=== PATIENT | male | born 1985 | race Caucasian/White ===

== ENCOUNTER 2022-01-01 22:15 | Emergency (ER) | payer OTHER ==
[~2022-01-01] VITALS: Ht 175.3 cm; Wt 90.7 kg
--- NOTE | 2022-01-01 22:20 | NUR ---
PT AMBULATED TO ER C/O LT PINKY PAIN AND SWELLING X 3-4 DAYS, UNKNOWN ETIOLOGY. A/O X4, NO SOB OR LABORED BREATHING, AFEBRILE.
--- NOTE | 2022-01-01 22:30 | NUR ---
DR. PACHECO AT BEDSIDE, MSE IN PROGRESS.
[2022-01-01] MEDS ORDERED: PIPERACILLIN SODIUM/TAZOBACTAM 3.375 G in IV DEXTROSE 5% 50 ML IV ONE (23:00)
[2022-01-01] MEDS ORDERED: ONDANSETRON 4 MG/2 ML VIAL IV ONE (23:00)
[2022-01-01] MEDS ORDERED: HYDROMORPHONE 1 MG/1 ML DISP.SYRIN IV ONE (23:00)
[2022-01-01] MEDS ORDERED: SULFAMETH/TRIMETH 800/160 MG TABLET PO ONE (23:00)
[2022-01-01] MEDS ORDERED: ONDANSETRON 4 MG/2 ML VIAL ONE (23:38)
[2022-01-01] MEDS ORDERED: HYDROMORPHONE 1 MG/1 ML DISP.SYRIN ONE (23:38)
[2022-01-01] MEDS ORDERED: SULFAMETH/TRIMETH 800/160 MG TABLET ONE (23:38)
[2022-01-01] MEDS ORDERED: PIPERACILLIN/TAZOBACTAM/D5W 50 ML IV ONE (23:38)
[2022-01-01] MEDS ORDERED: ONDA4TAB5 PO (23:55)
[2022-01-01] MEDS ORDERED: SULF1TAB48 PO (23:55)
[2022-01-01] MEDS ORDERED: AMOX-430 PO (23:55)
--- NOTE | 2022-01-02 00:18 | NUR ---
Patient discharged to home in stable condition. Written and verbal after care instructions given. Patient verbalizes understanding of instructions. Stressed follow up or return to ER for worsening s/s. Steady gait, no SOB or labored breathing. Denies any pain/discomfort upon discharge. Picked up by friend.
[2022-01-02 00:19] VITALS: BP 122/80
== END 2022-01-02 00:19 | disposition home or self-care (01) ==
LOC: ER 22:15
DX: L03.019 Cellulitis of unspecified finger (principal)
CPT/HCPCS: 73140; 96365; 96375; 99284; J1170; J2543; A4663; J2405; J7060

== ENCOUNTER 2022-02-22 02:28 | Emergency (ER) | payer OTHER ==
[~2022-02-22] VITALS: Ht 172.7 cm; Wt 99.8 kg
[~2022-02-22 02:28] MED LIST: AMOX-430 PO; ONDA4TAB5 PO; SULF1TAB48 PO
--- NOTE | 2022-02-22 03:09 | NUR ---
Dr. Hurt at bedside for MSE.
[2022-02-22 03:49] LABS: *BILIRUBIN,URIN NEGATIVE (NEGATIVE); *BLOOD, URINE 2+ (NEGATIVE); *CLARITY,URINE CLOUDY (CLEAR); *COLOR,URINE YELLOW (YELLOW); *KETONES,URINE TRACE (NEGATIVE); *UROBILINOGEN,URINE 0.2 E.U./dl (NORMAL); LEUKOCYTE ESTERASE ,URINE 1+ (NEGATIVE); NITRITE, URINE NEGATIVE (NEGATIVE); PH,URINE 5.5 (5.0-8.0); UGLUCOSE TRACE (NEGATIVE)
--- NOTE | 2022-02-22 03:53 | NUR ---
Ultrasound at bedside.
[2022-02-22 04:05] LABS: BACTERIA,URINE MODERATE /HPF (NONE SEEN); RBC,URINE TNTC /HPF (0-3); SQUAMOUS EPITHELIAL CELL,UR FEW /HPF (NONE SEEN); WBC,URINE TNTC /HPF (0-3)
[2022-02-22 04:57] LABS: *MONOTEST NEGATIVE (NEGATIVE)
[2022-02-22] MEDS ORDERED: DOXY100C5 PO (05:23)
[2022-02-22] MEDS ORDERED: CEFTRIAXONE 500 MG VIAL ONE (05:24)
[2022-02-22] MEDS ORDERED: DOXYCYCLINE HYCLATE 100 MG TABLET ONE (05:24)
[2022-02-22] MEDS ORDERED: LIDOCAINE HCL 1% 20 ML VIAL ONE (05:24)
[2022-02-22] MEDS ORDERED: DOXYCYCLINE HYCLATE 100 MG TABLET PO ONE (05:30)
[2022-02-22] MEDS ORDERED: CEFTRIAXONE 500 MG VIAL IM ONE (05:30)
--- NOTE | 2022-02-22 05:38 | NUR ---
Patient discharged to home in stable condition. Written and verbal after care instructions given. Patient verbalizes understanding of instructions. Stressed follow up or return to ER for worsening s/s.
[2022-02-22 05:54] VITALS: BP 120/77
[2022-02-24 01:06] LABS: *GC NAA Negative (Negative)
[2022-02-24 03:06] LABS: *TRIC.VAG. NAA Negative (Negative)
== END 2022-02-22 05:40 | disposition home or self-care (01) ==
LOC: ER 02:31
DX: N45.1 Epididymitis (principal); F17.210 Nicotine dependence, cigarettes, uncomplicated; Z79.2 Long term (current) use of antibiotics; Z79.899 Other long term (current) drug therapy
CPT/HCPCS: 36415; 76870; 81001; 86308; 87086; 87491; 96372; 99284; J0696; J3490; A4663

== ENCOUNTER 2022-02-24 13:51 | Emergency (ER) | payer OTHER ==
[~2022-02-24] VITALS: Ht 172.7 cm; Wt 90.7 kg
[~2022-02-24 13:51] MED LIST changes: +DOXY100C5 PO
[2022-02-24] MEDS ORDERED: HYDR-3980 PO (14:03)
--- NOTE | 2022-02-24 14:16 | NUR ---
PT WAS EVALUATED BY DR CHESTER. PT WAS D/C'd TO HOME. D/C INSTRUCTIONS GIVEN TO THE PT BY DR CHESTER.
[2022-02-24 14:18] VITALS: BP 141/78
== END 2022-02-24 14:18 | disposition home or self-care (01) ==
LOC: ER 13:51
DX: A56.19 Other chlamydial genitourinary infection (principal)
CPT/HCPCS: A4663

== ENCOUNTER 2022-03-14 18:31 | Emergency (ER) | payer OTHER ==
[~2022-03-14] VITALS: Ht 172.7 cm; Wt 90.7 kg
[~2022-03-14 18:31] MED LIST changes: +HYDR-3980 PO
--- NOTE | 2022-03-14 19:08 | NUR ---
Dr skinner at bedside, MSE in progress.
[2022-03-14 19:34] LABS: *BILIRUBIN,URIN NEGATIVE (NEGATIVE); *CLARITY,URINE CLEAR (CLEAR); *COLOR,URINE YELLOW (YELLOW); *KETONES,URINE TRACE (NEGATIVE); *UROBILINOGEN,URINE 0.2 E.U./dl (NORMAL); LEUKOCYTE ESTERASE ,URINE NEGATIVE (NEGATIVE); NITRITE, URINE NEGATIVE (NEGATIVE); PH,URINE 5.5 (5.0-8.0); UGLUCOSE NEGATIVE (NEGATIVE)
[2022-03-14 19:35] LABS: *BLOOD, URINE TRACE (NEGATIVE)
[2022-03-14 19:53] LABS: BACTERIA,URINE FEW /HPF (NONE SEEN); SQUAMOUS EPITHELIAL CELL,UR FEW /HPF (NONE SEEN); WBC,URINE 0-3 /HPF (0-3)
[2022-03-14 20:01] LABS: CALCIUM OXALATE CRYSTALS,UR RARE /HPF (NONE SEEN)
[2022-03-14] MEDS ORDERED: DOXY-226 PO (20:28)
--- NOTE | 2022-03-14 20:54 | NUR ---
Patient discharged to home in stable condition. Written and verbal after care instructions given. Patient verbalizes understanding of instructions. Stressed follow up or return to ER for worsening s/s. pt ambulated with steady gait. denies pain. no SOB. no chest pain. AOx4
[2022-03-14 20:55] VITALS: BP 118/73
[2022-03-17 02:06] LABS: *GC NAA Negative (Negative)
[2022-03-17 06:06] LABS: *TRIC.VAG. NAA Negative (Negative)
== END 2022-03-14 20:55 | disposition home or self-care (01) ==
LOC: ER 18:35
DX: A56.19 Other chlamydial genitourinary infection (principal)
CPT/HCPCS: 87491; 87591

== ENCOUNTER 2022-08-20 15:30 | Emergency (ER) | payer OTHER ==
[~2022-08-20] VITALS: Ht 172.7 cm; Wt 90.7 kg
[~2022-08-20 15:30] MED LIST changes: +DOXY-226 PO
--- NOTE | 2022-08-20 16:00 | NUR ---
Pt was brought to triage via w/c, triaged and placed back in waiting room. No ER beds available.
[2022-08-20] MEDS ORDERED: HYDROCODONE/APAP 5-325MG TABLET PO ONE (16:45)
[2022-08-20] MEDS ORDERED: HYDROCODONE/APAP 5-325MG TABLET ONE (16:51)
[2022-08-20 16:59] LABS: *BILIRUBIN,URIN NEGATIVE (NEGATIVE); *BLOOD, URINE NEGATIVE (NEGATIVE); *CLARITY,URINE CLOUDY (CLEAR); *COLOR,URINE YELLOW (YELLOW); *KETONES,URINE 1+ (NEGATIVE); *UROBILINOGEN,URINE 0.2 E.U./dl (NORMAL); LEUKOCYTE ESTERASE ,URINE NEGATIVE (NEGATIVE); NITRITE, URINE NEGATIVE (NEGATIVE); PH,URINE 8.5 (5.0-8.0); UGLUCOSE NEGATIVE (NEGATIVE)
[2022-08-20] MEDS ORDERED: DOXY100C5 PO (18:59)
[2022-08-20] MEDS ORDERED: HYDR-3974 PO (18:59)
[2022-08-20] MEDS ORDERED: CEFTRIAXONE 500 MG VIAL IM ONE (19:00)
[2022-08-20] MEDS ORDERED: CEFTRIAXONE 500 MG VIAL ONE (19:05)
[2022-08-20] MEDS ORDERED: LIDOCAINE HCL 2% 20 ML VIAL ONE (19:08)
[2022-08-20 19:32] LABS: BACTERIA,URINE FEW /HPF (NONE SEEN); RBC,URINE 0-3 /HPF (0-3); SQUAMOUS EPITHELIAL CELL,UR FEW /HPF (NONE SEEN); URINE AMORPHOUS PHOSPHATES MODERATE /HPF; WBC,URINE 0-3 /HPF (0-3)
[2022-08-24 01:06] LABS: *TRIC.VAG. NAA Negative (Negative)
[2022-08-24 20:06] LABS: *GC NAA Negative (Negative)
== END 2022-08-20 19:20 | disposition home or self-care (01) ==
LOC: ER 15:30
DX: N45.1 Epididymitis (principal); Z11.3 Encounter for screening for infections with a predominantly sexual mode of transmission; N50.812 Left testicular pain
CPT/HCPCS: 99284; 81001; 76870; 96372; 87491; J0696; J3490; A4663

== ENCOUNTER 2023-07-13 07:00 | Emergency (ER) | payer OTHER ==
[~2023-07-13] VITALS: Ht 172.7 cm; Wt 90.7 kg
[~2023-07-13 07:00] MED LIST changes: +HYDR-3974 PO
[2023-07-13 08:25] LABS: BASOPHILS % (AUTO) 0.5 % (0.0-2.0); EOSINOPHILS # (AUTO) 0.1 K/uL (0.0-0.7); EOSINOPHILS % (AUTO) 0.9 % (0.0-7.0); HEMATOCRIT 40.8 % (36.7-47.1); HEMOGLOBIN 14.1 g/dL (12.5-16.3); LYMPHOCYTES # (AUTO) 2.3 K/uL (0.8-4.8); LYMPHOCYTES % (AUTO) 31.8 % (20.5-51.5); MEAN CORPUSCULAR HGB CONC 35 g/dL (32.5-36.3); MEAN CORPUSCULAR VOLUME 86.4 fL (73.0-96.2); MONOCYTES # (AUTO) 0.6 K/uL (0.1-1.30); MONOCYTES % (AUTO) 7.7 % (0.0-11.0); NEUTROPHILS # (AUTO) 4.3 K/uL (1.8-8.9); NEUTROPHILS % (AUTO) 59.1 % (38.5-71.5); PLATELET COUNT (AUTO) 240 K/uL (152-348); RED BLOOD CELL COUNT(AUTO) 4.72 MIL/uL (4.06-5.63); RED CELL DISTRIBUTION WIDTH 13.4 % (12.1-16.2); WHITE BLOOD COUNT (AUTO) 7.3 K/uL (3.6-10.2)
[2023-07-13 08:32] LABS: DIFFERENTIAL COMMENT N
[2023-07-13 08:39] LABS: CALCIUM 9.4 mg/dL (8.5-10.1); CREATININE 1.1 mg/dL (0.6-1.3); POTASSIUM 3.7 mmol/L (3.5-5.1)
[2023-07-13 08:46] LABS: ALBUMIN 4.1 g/dL (3.4-5.0); BILIRUBIN,DIRECT 0.1 mg/dL (0.0-0.2); BILIRUBIN,TOTAL 0.5 mg/dL (0.2-1.0); TOTAL PROTEIN, SERUM 8.5 g/dL (6.4-8.2)
[2023-07-13] MEDS ORDERED: predniSONE 20 MG TABLET PO ONE (17:45)
[2023-07-13 18:13] VITALS: BP 135/72; TEMP 98.2; O2SAT 98
[2023-07-14] MEDS ORDERED: SULF1TAB48 PO (10:44)
[2023-07-14] MEDS ORDERED: METH4TAB3 PO (10:44)
[2023-07-14] MEDS ORDERED: CEPH500T PO (10:44)
== END 2023-07-13 18:15 | disposition home or self-care (01) ==
LOC: ER 07:06
DX: M54.12 Radiculopathy, cervical region (principal); M19.072 Primary osteoarthritis, left ankle and foot; F17.210 Nicotine dependence, cigarettes, uncomplicated; Z79.2 Long term (current) use of antibiotics; Z79.899 Other long term (current) drug therapy; M25.511 Pain in right shoulder; R07.89 Other chest pain
CPT/HCPCS: 36415; 70250; 70450; 71045; 72125; 73030; 73610; 83605; 85025; 85651; 85730; 87040; A4606; A4663

== ENCOUNTER 2024-02-26 12:37 | Emergency (ER) | payer MEDICAID, OTHER ==
[~2024-02-26] VITALS: Ht 172.7 cm; Wt 99.8 kg
[~2024-02-26 12:37] MED LIST changes: +CEPH500T PO; +METH4TAB3 PO
[2024-02-26] MEDS ORDERED: SULF1TAB48 PO (13:00)
[2024-02-26 13:11] VITALS: BP 121/79; TEMP 98.4; O2SAT 98
== END 2024-02-26 13:19 | disposition home or self-care (01) ==
LOC: ER 12:39
DX: L03.115 Cellulitis of right lower limb (principal); F17.200 Nicotine dependence, unspecified, uncomplicated; Z79.899 Other long term (current) drug therapy; Z60.2 Problems related to living alone
CPT/HCPCS: A4606; A4663

== ENCOUNTER 2024-05-27 18:30 | Emergency (ER) | payer MEDICAID, OTHER | END 2024-05-27 19:02 | disposition left against medical advice (07) | LOC: ER 18:31 | DX: R12 Heartburn (principal); M79.10 Myalgia, unspecified site; Z53.21 Procedure and treatment not carried out due to patient leaving prior to being seen by health care provider ==